=== PATIENT | male | born 1955 | race Caucasian/White ===

== ENCOUNTER → 2019-03-03 11:59 | Outpatient (CLI) | payer MEDICARE, OTHER, SELFPAY ==
--- NOTE | 2019-03-03 12:07 | DI.RAD.S_ITS ---
PROCEDURE: XR LUMBAR SPINE MIN 4V INDICATIONS: Status post lumbar fusion TECHNIQUE: 5 views of the lumbar spine were acquired. COMPARISON: [facility], CR, XR LUMBAR SPINE LAT FL EX 3VW, 05/08/2016, 17:27. FINDINGS: Bones: 5 nonrib-bearing vertebrae are present. There is normal bony alignment maintained by bilaterally symmetric transverse pedicle screw placement and vertical fixation rods spanning from L4-S1, without abnormal subluxation or evidence of device loosening or disruption.. No vertebral body compression fractures. No suspicious bony lesions. Soft tissues: Overlying bowel gas pattern is normal. No suspicious soft tissue calcifications. Oblique images: No pars defects. IMPRESSION: Stable appearance of the prior orthopedic fixation devices with reference to the comparison study 05/08/16. No evidence of device loosening or disruption. No subluxation has developed. Dictated by: Chemo Heard M.D. on 03/03/2019 at 13:20 Approved by: Chemo Heard M.D. on 03/03/2019 at 13:24
--- NOTE | 2019-03-03 12:07 | DI.RAD.S_ITS ---
PROCEDURE: XR CERVICAL SPINE 4V OR 5V INDICATIONS: Status post lumbar fusion TECHNIQUE: 5 views of the cervical spine acquired. COMPARISON: None. FINDINGS: Bones: No fractures or dislocations to the T1 level. Oblique images demonstrate no bony foraminal stenoses. Posterior and anterior degenerative changes present comprised of moderate C5-6 through C6-7-T1 degenerative disc disease anteriorly and mild to moderate facet osteoarthritis along these levels at the posterior elements. Soft tissues: No prevertebral soft tissue swelling. IMPRESSION: Degenerative disc disease and facet osteoarthritis is mild to moderate from C5 inferiorly, but no definite spinal or foraminal stenosis is found. Dictated by: Chemo Heard M.D. on 03/03/2019 at 13:25 Approved by: Chemo Heard M.D. on 03/03/2019 at 13:26
== END ==
PROVIDERS: Family Provider Physician Assistant Medical; PCP Physician Assistant Medical; Visit Provider Physical Medicine & Rehabilitation
DX: M47.816 Spondylosis without myelopathy or radiculopathy, lumbar region (principal); M47.812 Spondylosis without myelopathy or radiculopathy, cervical region; M50.322 Other cervical disc degeneration at C5-C6 level; G95.9 Disease of spinal cord, unspecified; Z98.1 Arthrodesis status; Z98.890 Other specified postprocedural states
CPT/HCPCS: 72050; 72110; 99214

== ENCOUNTER → 2019-03-12 14:59 | Outpatient (CLI) | payer MEDICARE, OTHER, SELFPAY ==
--- NOTE | 2019-03-12 15:01 | DI.MRI.S_ITS ---
PROCEDURE: MR LUMBAR SPINE WO CON INDICATIONS: Status post lumbar fusion TECHNIQUE: Noncontrast sagittal T1 spin echo and T2 fast echo, sagittal STIR, axial T1 and T2 fast spin echo through the lumbar spine. In cases with scoliosis, additional coronal T2 fast spin echo may be performed. COMPARISON: [facility], MR, L-SPINE W&WO CONTRAST, 05/23/2016, 13:53. FINDINGS: Image quality: Excellent. Alignment and Curvature: Unchanged alignment. Please see the small and positive image for further clarification of the spinal segmental level numbering scheme used in this report and prior to any intervention. This matches the prior study dated 05/23/16. Bone Marrow: Postsurgical changes related to L5-S1 laminectomy. Posterior spinal fixation hardware from the level of L5-S2 There is chronic osseous fusion of L5-S1 vertebral bodies. No acute vertebral body compression fractures. Spinal Cord: Conus medullaris terminates at the L1 level. Visualized cord demonstrates normal signal and size. Paraspinous Soft Tissues: No paravertebral masses. L1-L2: Normal appearance. L2-L3: Normal appearance. L3-L4: Dorsal epidural lipomatosis and mild central canal narrowing. Partial effacement of both lateral recesses with bilaterally symmetric appearance. Mild bilateral foraminal stenoses, grossly unchanged. L4-L5: No central canal stenosis. The lateral recess appear grossly patent. Mild bilateral foraminal stenoses, unchanged L5-S1: No residual high-grade central canal narrowing. The lateral recess appear grossly patent. Mild bilateral neural foraminal narrowing although suboptimal evaluation due to hardware artifact at this level SI-S2: No central canal narrowing. The lateral recess appear grossly patent. No definite foraminal stenoses IMPRESSION: Overall, unchanged postsurgical sequela, lumbar spondylosis and facet arthropathy as above. No high-grade central canal stenosis Diffuse mild bilateral foraminal stenoses appear unchanged since 05/23/16 Dictated by: Ty Vergara M.D. on 03/12/2019 at 17:24 Approved by: Ty Vergara M.D. on 03/12/2019 at 17:32
--- NOTE | 2019-03-12 15:01 | DI.MRI.S_ITS ---
PROCEDURE: MR CERVICAL SPINE WO CON INDICATIONS: Status post lumbar fusion TECHNIQUE: Noncontrast sagittal T1 spin echo and T2 fast spin echo, sagittal STIR, foraminal oblique sagittal T2 fast spin echo, and axial gradient echo or T2 fast spin echo through the cervical spine. COMPARISON: [facility], RG, MRI C-SPINE W/O CONTRAST, 05/26/2008, 8:49. [facility], MR, MR LUMBAR SPINE WO CON, 03/12/2019, 15:28. [facility], CR, XR CERVICAL SPINE 4V OR 5V, 03/03/2019, 12:19. FINDINGS: Image quality: Excellent. Alignment and Curvature: There is normal bony alignment. Bone Marrow: Marrow demonstrates normal overall signal. Spinal Cord: Visualized spinal cord has normal size and signal. No cerebellar tonsillar herniation. Paraspinous Soft Tissues: No paravertebral masses. Prevertebral soft tissues are normal in thickness. C2-C3: No significant abnormality is seen. C3-C4: The disc height is well-preserved. Loss of disc signal is seen at this level. A mild degree of generalized disc osteophyte complex is seen. There is moderate right-sided and mild to moderate left-sided neural foraminal narrowing seen. Mild central canal narrowing is seen. C4-C5: The disc height is well-preserved. Loss of disc signal is seen at this level. Moderate generalized disc osteophyte complex is seen. There is a mild central disc protrusion seen. Moderate bilateral neural foraminal narrowing is seen. Moderate central canal narrowing is seen, with associated mass effect upon the ventral spinal cord. C5-C6: There is at least moderate loss of disc height and disc signal seen. Moderate to prominent disc osteophyte complex is seen, with a central disc osteophyte protrusion seen. There is moderate to severe bilateral neural from narrowing seen. There is moderate to severe central canal narrowing, with associated mass effect upon the ventral spinal cord. C6-C7: Moderate loss of disc height is seen. Loss of disc signal is seen. Moderate generalized disc osteophyte complex is seen. Moderate to severe bilateral neural foraminal narrowing is seen. There is at least moderate central canal narrowing, with minimal associated mass effect upon the ventral spinal cord. C7-T1: No significant abnormality is seen. IMPRESSION: Multiple levels of cervical spine degenerative change are seen, which are most prominent at C5-C6. These degenerative changes have progressed compared to the outside 2009 examination. Dictated by: Sree Salinas M.D. on 03/12/2019 at 17:26 Approved by: Sree Salinas M.D. on 03/12/2019 at 17:30
== END ==
PROVIDERS: Family Provider Physician Assistant Medical; PCP Physician Assistant Medical; Visit Provider Physical Medicine & Rehabilitation
DX: M47.816 Spondylosis without myelopathy or radiculopathy, lumbar region (principal); M48.061 Spinal stenosis, lumbar region without neurogenic claudication; M47.812 Spondylosis without myelopathy or radiculopathy, cervical region; G95.9 Disease of spinal cord, unspecified; Z98.1 Arthrodesis status; Z98.890 Other specified postprocedural states
CPT/HCPCS: 72141; 72148

== ENCOUNTER 2019-04-29 11:03 | Outpatient (CLI) | payer MEDICARE, OTHER, SELFPAY ==
[2019-04-29] VITALS (8 sets, daily range): BP systolic 108–134; BP diastolic 80–93; PULSE 64–71; RESP 16; TEMP 36.3; O2SAT 96–100
--- NOTE | 2019-04-29 11:05 | DI.RAD.S_ITS ---
PROCEDURE: PAIN L/S TRANSFORAMINAL INJECT INDICATIONS: RADICULOPATHY FINDINGS: Fluoroscopic spot filming was performed to verify placement of spinal needles at the L5-S1 level(s), as labeled on the films. Appropriate location(s) of the needle tip(s) was confirmed by injection of iodinated contrast. Dictated by: Ty Vergara M.D. on 04/29/2019 at 13:59 Approved by: Ty Vergara M.D. on 04/29/2019 at 14:00
[2019-04-29] MEDS: fentaNYL 100 MCG/2 ML INJ 50 MCG IV (12:15)
[2019-04-29] MEDS: MIDAZOLAM 5 MG/5 ML VIAL IV (12:21)
[2019-04-29] MEDS: BETAMETHASONE 30 MG/5 ML MDV 6 MG INJ (12:24)
[2019-04-29] MEDS: IOPAMIDOL 15 ML VIAL 3 ML INJ (12:24)
[2019-04-29] MEDS: BUPIVACAINE 0.25% (PF) VIAL 2 ML INJ (12:24)
[2019-04-29] MEDS: DEXAMETHASONE 10 MG/ML VIAL 20 MG INJ (12:25)
--- NOTE | 2019-04-29 12:26 | PC.NURSE ---
ASSISTING PT OFF TABLE AND TRANSPORTING TO POST PROC AREA IN STABLE CONDITION. PASSING RN CARE OF PT OFF TO SHANTA Marx RN.
--- NOTE | 2019-04-29 12:29 | PM.PROC.1 ---
Procedures Date/Time Date of procedure: 04/29/19 Time of procedure: 12:30 General Procedure description: PREOP DIAGNOSIS 1. FORMAINAL STENOSIS WITH LE SYMPTOMS POST OP DIAGNOSIS 1. FORMAINAL STENOSIS WITH LE SYMPTOMS PROCEDURES 1. FLUOROSCOPICALLY GUIDED CONTRAST CONTROLLED TRANSFORAMINAL EPIDURAL STEROID INJECTION - Left L5/S1 PHYSICIAN: Josh Vail DO INDICATIONS: Jerry is referred by JUDITH Eason for treatment of Foraminal Stenosis with Left LE Symptoms FINDINGS Foraminal Nerve Root Compression secondary to disc disease and facet hypertrophy DESCRIPTION OF PROCEDURE: Following review of allergy and review of potential side effects and complications, including, but not necessarily limited to, infection, allergic reaction, local tissue breakdown, stroke, temporary or permanent nerve injury, paralysis, and possible , the patient indicated that the patient understood and agreed to proceed. An informed consent document was signed by the patient, witnessed by a nurse, and placed in the patient's chart. Additionally, other treatment options including medications, modalities, and physical therapy were reviewed with the patient. After review of previous anaesthesic history and IV conscious sedation the patient was deemed safe to proceed with todays procedure with IV conscious sedation as ASA class II designation. Safety time-out was performed to confirm patient ID, procedure to be performed and site of procedure. IV sedation was accomplished with a combination of 2mg of Versed and 50mcg of Fentanyl was administered by the RN after DO order, titrated to patient comfort during the course of the procedure while the patient remained responsive to all verbal commands In the prone position following sterile prep and drape of the lumbar region, the left L5/S1 posterior neuroforamen was identified fluoroscopically. The skin was anesthetized via a 25-gauge 1.5-inch needle with 1% lidocaine solution. At this point, a 25-gauge 3.5-inch spinal needle was atraumatically introduced and advanced under fluoroscopic guidance through the posterior Left L5/S1 neuroforamen to approximately the anterior aspect of the canal. Depth was confirmed on lateral view. Following negative aspiration, injection of approximately 1.5 cc of Isovue 200 under live fluoroscopy in the AP view confirmed excellent flow along the nerve root, into the epidural space without vascular or intrathecal uptake observed Radiological data, including multiple fluoroscopic views of the lumbosacral spine, reveal a spinal needle at the left L5/S1 posterior neuroforamen. Subsequent views show flow of contrast material flowing superiorly and inferiorly along the nerve root confirming epidural flow. Subsequently, a test dose of 1.5cc of 0.25% marcaine solution was administered and patient was observed for two minutes for signs or symptoms of complications, including abdominal pain, shortness of breath, bilateral upper or lower extremity weakness, nausea and vomiting, prior to steroid injection. At this point, a total of 3cc or 20mg of dexamethasone and 6mg of betamethasone was injected without incident. The procedure tolerated the procedure well without signs or symptoms of complications prior to transfer to the recovery area continued monitoring without incident. The patient was then transferred to the recovery area where they were observed for an appropriate time after the injection. The patient reported a VAS score of 8 prior to the procedure and a post-procedure VAS of 0. Total Fluoroscopy Time: 11 seconds Total Conscious Sedation Time: 24min POST OP INSTRUCTIONS The patient was provided a Pain Log to continue to record their response to the target-specific procedure prior to follow-up visit with their referring physician. Additionally, specific post-injection care instructions and a contact number to our office were provided if concerns arise regarding possible complications associated with the procedure are suspected. Josh Vail DO Complications: none
--- NOTE | 2019-04-29 14:06 | PC.NURSE ---
pt returned to pre procedure via w/c. Care, monitoring, and discharge was done by Sosa Osorio under this authors sign.
== END 2019-04-29 13:05 | disposition home or self-care (01) ==
LOC: RAD 11:05
PROVIDERS: Family Provider Physician Assistant Medical; PCP Physician Assistant Medical; Referring Provider Physical Medicine & Rehabilitation; Visit Provider Physical Medicine & Rehabilitation
DX: M48.07 Spinal stenosis, lumbosacral region (principal); M51.17 Intervertebral disc disorders with radiculopathy, lumbosacral region
CPT/HCPCS: 64483; 99152; J0702; J1100; J2250; J3010

== ENCOUNTER → 2019-08-07 09:23 | Outpatient (CLI) | payer MEDICARE, OTHER, SELFPAY ==
[2019-08-08 21:57] LABS: COVID19 Sendout Not Detected (Not Detect)
== END ==
PROVIDERS: Family Provider Physician Assistant Medical; PCP Physician Assistant Medical; Visit Provider Family Medicine
DX: Z01.818 Encounter for other preprocedural examination (principal)
CPT/HCPCS: 87635

== ENCOUNTER 2019-08-10 09:08 | Inpatient (IN) | payer MEDICARE, OTHER, SELFPAY ==
[2019-06-08 12:35] VITALS: BMI 30.7
[2019-08-10] VITALS (15 sets, daily range): BP systolic 104–160; BP diastolic 74–95; PULSE 69–89; RESP 8–18; TEMP 36–36.6; O2SAT 90–99; BMI 29.5
--- NOTE | 2019-08-10 | DI.RAD.S_ITS ---
PROCEDURE: XR CERVICAL SPINE 2V OR 3V INDICATIONS: C4-7 ANTERIOR DISCECTOMY TECHNIQUE: 2 view(s) of the cervical spine were acquired. COMPARISON: None. FINDINGS: Bones: No fractures or dislocations to the C7 level. Postsurgical changes compatible C4-C5, C5-C6 and C6-C7 ACDF. There is normal alignment and curvature are fused and nonfused segments. Soft tissues: No prevertebral soft tissue air. IMPRESSION: Expected postsurgical change for C4-C7 ACDF. Dictated by: Marion June MD, PhD on 08/10/2019 at 13:20 Approved by: Marion June MD, PhD on 08/10/2019 at 13:26
--- NOTE | 2019-08-10 07:25 | PM.HP.1 ---
History of Present Illness History of Present Illness Date Patient Seen: 08/10/19 Time Patient Seen: 10:06 Chief complaint: Cervical Fusion Anterior *OPB* Narrative: 63-year-old male with progressive neck symptoms. He had an injury with a fracture in 1976. Fluid years his symptoms have been progressively worsening. Symptoms include stiffness and soreness in the neck with repetitive motion. He gets pain in the upper back that is stabbing and move happens when he walks. However, over the past year he has been having increased problems with feeling like his legs will not support him and he has balance issues. This has been progressing over the past several months. He was having some shortness of breath and dizziness but had a negative cardiac workup. He also has some left-sided facial numbness and hoarseness. No arm pain or weakness but he does have numbness that started in both index fingers and now has progressed to both hands. Also losing fine motor control, his handwriting is getting very sloppy. No bowel or bladder changes. He does have a history of lumbar surgery but not cervical. Patient History Medical History (Updated 08/10/19 @ 09:59 by Alka Mane RN) Arthritis (Acute) Cervical myelopathy (Acute) Facet arthropathy, lumbar (Acute) Gastric reflux (Acute) H/O electromyography (Acute) Hearing loss (Acute) Hypertension (Acute) Numbness (Acute) Poor balance (Acute) Surgical History History of back surgery (Acute) History of ear surgery (Acute) Hx of hernia repair (Acute) Hx of repair of right rotator cuff (Acute) Family & Social History Family History Father Brain bleed Colon cancer Esophagus cancer Mother Kidney stones Breast cancer Colon cancer Cardiovascular disease Brother Multiple organ system failure Alcohol abuse Grandmother No problems noted. Social History: household members spouse Prior Living Arrangements House Safety & Behavioral: Feels Safe in Current Yes Environment Been Physically Hurt or No Threatened By a Person Suicidal Ideation Description None Suicide Plan Description No Plan Tobacco & Substance use: Smoking Status Never smoker alcohol intake current alcohol intake frequency 0-2 drinks per day Substance Use Type does not use Meds Home Medications and Allergies Home Medications Medication Instructions Recorded Confirmed Type losartan 100 0.5 tab PO DAILY tab 03/03/19 06/08/19 History mg-hydrochlorothiazide 25 mg tablet metoprolol tartrate 25 mg tablet See Rx Instructions PO DAILY 03/03/19 06/08/19 History tamsulosin 0.4 mg capsule 0.4 mg PO DAILY 03/03/19 06/08/19 History gabapentin 100 mg capsule 100 mg PO BEDTIME #60 cap MDD 300 05/19/19 06/08/19 Rx mg p.o. q.h.s. sildenafil 100 mg PO DAILY PRN 06/08/19 06/08/19 History naproxen 250 mg PO BID PRN 08/10/19 08/10/19 History Allergies Allergy/AdvReac Type Severity Reaction Status Date / Time No Known Drug Allergies Allergy Verified 08/10/19 09:40 Review of Systems Constitutional Constitutional: Denies chills and Denies fever(s) Respiratory Respiratory: Denies cough Exam Const Orientation: alert and oriented x3 Resp Auscultation: clear to auscultation bilaterally Cardio Rate: regular rate Rhythm: regular rhythm Back/Spine/Pelvis Other: 5/5 motor both upper extremities except for 4/5 right wrist extensor and assistant manager pt bilaterally. Intact sensation throughout both upper extremities but decreased both hands. Miki present on the left. Minimal cervical tenderness. Objective Imaging Cervical MRI: My impression: From 03/12/2019 shows congenital narrowing of the spinal canal. C2-3 open. C3-4 mild central mild bilateral foraminal narrowing. C4-5 moderate central stenosis with flattening of the cord, moderate bilateral foraminal narrowing. C5-6 severe central stenosis with flattening of the cord and cord signal changes. Severe bilateral foraminal narrowing. C6-7 mild central stenosis moderate bilateral foraminal narrowing. C7-T1 open. Lumbar MRI from 03/12/2019 shows an instrumented fusion from L4 through S1. Open central canal and foramen throughout. Assessment & Plan Assessment & Plan narrative: Cervical stenosis with progressive myelopathy. His lumbar MRI looks fine and does not explain the leg symptoms, this most likely is from the cervical spine. We had initially scheduled him for surgery but delayed due to the coronavirus limitations. However, as the restrictions are of lessening, I feel that he is at a high risk for further neurologic deterioration if we do not go ahead with surgery at this point the benefits of surgery outweigh the risks. We will go ahead with a C 4-7 ACDF. All questions been answered. Risks and benefits again discussed.
[2019-08-10] MEDS: LACTATED RINGERS 1,000 ML 42 ML IV (09:50)
[2019-08-10] MEDS: CEFAZOLIN 2 GM/100 ML FROZ.PIGGY IV ×2 (10:44→19:35)
[2019-08-10] MEDS: SODIUM CHLORIDE 0.9% 1,000 ML, GENTAMICIN 80 MG IRR (11:30)
[2019-08-10] MEDS: BUPIVACAINE 0.25% W/ EPI 30 ML VIAL INJ (11:30)
[2019-08-10] MEDS: THROMBIN (RECOMBINANT) 5,000 UNIT VIAL 5000 UNIT TOP (11:31)
--- NOTE | 2019-08-10 13:01 | P.OP_ITS ---
Operative Date/Time/Diagnoses Date of procedure: 08/10/19 Time of procedure: 13:01 Pre-op diagnosis: Cervical stenosis with myelopathy Post-op diagnosis: same Procedure & Clinicians Procedure: C4-5, C5-6, C6-7 anterior cervical diskectomy and fusion with cage at each level Iliac crest bone graft aspirate Use of microscope Same procedure as scheduled: Yes Indications: [age] year old male with intractable pain from cervical stenosis and progressive myelopathy. They had failed conservative management and requested operative intervention. Risks and benefits of surgery were discussed and appropriate consents were obtained. Surgeon: Chandrakant Snell Graphics Artist: Erika Coleamn Anesthesia Type: General Operative Notes Findings: None Closure Type: primary Specimen(s): none sent Prosthetic devices, grafts, tissues, transplants, or devices: Marcelino AB-C Estimated Blood Loss (mL): 5 Procedure in detail: Patient was brought to the operating room and intubated on the table. A time-out was performed. Preoperative antibiotics were given. The neck was prepped and draped in the standard sterile fashion. Using a skin fold, we made a 3 cm oblique incision on the left side. We used Bovie to go through the platysma and then did a standard anterolateral blunt dissection down to the precervical fascia. Fascia was nicked and elevated up. A marker was placed and x-ray was taken for localization. We then subperiosteally elevated up the longus colli muscles. Self-retaining retractors were placed. Riverdale pins were placed. We then brought in the microscope. A scalpel used to perform an annulotomy. We then used a combination of pituitaries and curettes and Kerrison to perform a complete anterior diskectomy at C5-6 as this was the tightest level. We used the bur to take down the posterior osteophytes. We took down the PLL and used Kerrison to remove any posterior disc material and osteophytes. At the end we could from the nerve hook cephalad caudally and out the foramen and everything was opened. A small stab incision was made over the left anterior iliac crest. A Jamshidi needle was advanced into the pelvis and 2 mL of bone marrow was aspirated. We then used the trials. We then packed a 15 x 15 x 6 mm mm AB-C cage with Primagen bone graft and the iliac crest harvest. The cage was placed under fluoroscopic guidance. We then placed our two locking plates. X-ray was taken to confirm positioning. We then went down to C6-7. Again we distracted open with Riverdale pins. We performed a complete diskectomy including endplate preparation with curettes and pituitaries and Kerrisons then took down the PLL. A nerve hook was run throughout to make sure with an was wide open. We distracted and trialed our our cage. Another 15 x 15 x 6 mm cage was packed with bone graft and impacted into the disc space. We placed our locking plates and confirmed positioning with x-ray. We then moved up to C4-5. Again complete diskectomy was performed including endplate preparation. We took down the PLL. We decompressed and then checked everything with a nerve hook. We trialed and placed another 15 x 15 x 6 mm cage packed with bone graft. We placed our locking plates confirm positioning with final x-rays. The wound was irrigated. There was a little bony bleeding. This was treated with FloSeal. There did not appear to be any bleeding afterwards but to be safe I placed a drain.. The carotid was beating nicely. The platysma was closed. The superficial was closed. The skin was closed. A sterile dressing was placed. They were then extubated and brought to recovery room with no complications. Complications: none Post-operative Condition: stable Disposition: PACU Plan for aftercare: Overnight admission. Probable discharge tomorrow.
--- NOTE | 2019-08-10 13:56 | SUR.PHASEI ---
Report called to Gal.
[2019-08-10] MEDS: HYDROMORPHONE 2 MG INJ IV (13:59)
--- NOTE | 2019-08-10 14:32 | SUR.OPER ---
Supine, head on gel donut. Arms padded with gel pads, tucked at sides, towel roll under shoulders. Safety belt at thigh. Legs uncrossed.
--- NOTE | 2019-08-10 14:35 | SUR.PHASEI ---
Patient transferred to the floor. Report given to Gal. Black backpack, belongings bag, glasses and cell phone with patient. Dressings checked with RN. VS stable.
[2019-08-10] MEDS: LACTATED RINGERS 1,000 ML 125 ML IV (15:07)
--- NOTE | 2019-08-10 17:36 | SLP.IPNOTE ---
Patient seen for swallow screen post ACDF surgery. Patient placed on general diet and thin liquids after surgery. Patient presented with no overt s/sx of aspiration during observation at dinner time. NOVELTY TWISTER TENDER reviewed common swallowing and voice changes related to ACDF surgery. NOVELTY TWISTER TENDER also provided patient with ACDF handout with further explanation of changes in voice and swallowing after ACDF surgery. NOVELTY TWISTER TENDER placed handout in patient's discharge folder. NOVELTY TWISTER TENDER informed patient to call outpatient therapy services if swallowing and/or voice changes persist for several weeks after surgery.
[2019-08-10] MEDS: DOCUSATE 100 MG CAPSULE PO (21:08)
[2019-08-10] MEDS: SENNOSIDES 8.6 MG TABLET 17.2 MG PO (21:08)
[2019-08-10] MEDS: METOPROLOL IR 25 MG TABLET 12.5 MG PO (21:09)
[2019-08-10] MEDS: GABAPENTIN 100 MG CAPSULE PO (21:10)
[2019-08-10] MEDS: hydrOXYzine pamoate 25 MG CAPSULE PO (21:12)
[2019-08-10] MEDS: HYDROCODONE/ACET 5/325 TABLET 2 TAB PO (21:13)
[2019-08-11 00:15] VITALS: BP 157/98; PULSE 79; RESP 16; TEMP 36.6; O2SAT 97
[2019-08-11] MEDS: HYDROCODONE/ACET 5/325 TABLET 2 TAB PO ×3 (01:16→10:22)
[2019-08-11] MEDS: LACTATED RINGERS 1,000 ML 125 ML IV (01:19)
[2019-08-11] MEDS: CEFAZOLIN 2 GM/100 ML FROZ.PIGGY IV (03:07)
[2019-08-11 05:48] VITALS: BP 140/96; PULSE 69; RESP 16; TEMP 36.2; O2SAT 96
--- NOTE | 2019-08-11 07:42 | PM.PNPO.1 ---
Subjective Subjective Date Patient Seen: 08/11/19 Time Patient Seen: 07:42 Interval history: He is doing very well. Little difficulty with swallowing. He has been up and out of bed. Exam Vital Signs (past 8 hours): - 08/11/19 00:15 08/11/19 05:48 Temperature 97.8 F 97.2 F L Pulse Rate 79 69 Respiratory Rate 16 16 Blood Pressure 157/98 H 140/96 H Pulse Oximetry 97 96 Oxygen Delivery Method Room Air Oxygen Flow Rate 0 Const Orientation: alert and oriented x3 Back/Spine/Pelvis Other: CDI. 5/5 motor both upper extremities. Assessment & Plan Post-op Postoperative Procedures: Procedures Operation Date: 06/22/19 13:30 <No data on this case meets the specified criteria> Operation Date: 08/10/19 11:15 Actual Procedures Side Surgeon p C4-7 anterior discectomy and instrumented fusion w/bone graft Chandrakant Snell MD he is doing very well. Mobilize this morning with therapy and then discharged home today.
[2019-08-11 07:50] VITALS: BP 150/97; PULSE 73; RESP 16; TEMP 37; O2SAT 97
[2019-08-11] MEDS: DOCUSATE 100 MG CAPSULE PO (08:05)
[2019-08-11] MEDS: METOPROLOL IR 25 MG TABLET PO (08:07)
[2019-08-11] MEDS: hydroCHLOROthiazide 12.5 MG CAPSULE PO (08:09)
[2019-08-11] MEDS: LOSARTAN 50 MG TABLET PO (08:09)
--- NOTE | 2019-08-11 08:17 | PC.NURSE ---
Addendum entered by Charlette Jones R.N. 08/11/19 10:47: Drain removed and medicated for pain prior to d/c. Teaching provided. Pt ambulated to front entrance without incident. Original Note: Am Charisma is A/ox4, has already seen Dr and plans to d/c after PT today. Pain controlled. No trouble with swallowing. Call light in reach.
--- NOTE | 2019-08-11 09:04 | OT.IP.EVAL ---
Current Diagnoses Unspecified cord compression (08/10/19) Surgery Performed Operation Date: 06/22/19 13:30 <No data on this case meets the specified criteria> Operation Date: 08/10/19 11:15 Actual Procedures p C4-7 anterior discectomy and instrumented fusion w/bone graft - Chandrakant Snell MD Past Medical History (Last Updated 08/10/19 @ 09:59 by Alka Mane RN) Arthritis (Acute) Cervical myelopathy (Acute) Facet arthropathy, lumbar (Acute) Gastric reflux (Acute) H/O electromyography (Acute) Hearing loss (Acute) Hypertension (Acute) Numbness (Acute) Poor balance (Acute) Surgical History (Last Reviewed 08/10/19 @ 07:28 by Chandrakant Snell MD) History of back surgery (Acute) History of ear surgery (Acute) Hx of hernia repair (Acute) Hx of repair of right rotator cuff (Acute) Occupational Therapy Inpatient Evaluation/Re-Eval M1 PT/OT-IP Prior Functional Status Start: 08/11/19 09:46 Freq: NEEDED Status: Active Protocol: Document 08/11/19 08:39 [facility] (Rec: 08/11/19 10:13 [facility] [id number]) Medical Review Prior Functional Status Medical History Reviewed Yes Diet/Fluid Consistency Regular,Thin Liquids Communication Independent Mobility and Gait Independent with no devices. Activities of Daily Living and IADL's Indepedent and needing increased time due to pain and limited AROM for RUE. Social History Household Members spouse Living Arrangements House Number of Floors (Floors) One Floor Number of Stairs To Enter/Railing? 3 steps with pillars on each side. Home Environment High Toilet,Walk in Shower Home Equipment Straight Cane,Cnc Machine Programmer,Grab Bars Near Toilet M2 OT-IP Current Condition Start: 08/11/19 09:46 Freq: Status: Active Protocol: Document 08/11/19 08:39 [facility] (Rec: 08/11/19 10:13 [facility] [id number]) Occupational Therapy Current Condition Current Condition Evaluation Date 08/11/19 Treatment Diagnosis Cervical stenosis with myelopathy s/p C4-5, C5-6, C6- 7 ant. cerv. diskect. Diagnosis Onset Date 08/10/19 Post Operative Precautions Cervical Spine Precautions Soft Collar for Comfort,No Heavy Lifting,Log Roll Lumbar Precautions Log Roll,No Twisting Other Precautions Pt also has back issues and therefore encourage pt to keep following log rolling and no twisting as he has been doing prior to sx. M3 OT- IP Subjective and Pain Start: 08/11/19 09:46 Freq: Status: Active Protocol: Document 08/11/19 08:39 [facility] (Rec: 08/11/19 10:13 [facility] [id number]) OT- Subjective Occupational Therapy Visit Type Type Initial Evaluation Visit Start Time 08:39 Visit Stop Time 09:04 Total Visit Minutes 25 Occupational Therapy Visit Comments Patient Comments Pt agreeable to get up for OT eval. Patient/Caregiver Goals TO go home, be able to play and pickle pumper the grand kids again. OT Pain Assessment Pain When Pain Assessed At Rest Pain Present Pain Present Denied Pain M4 OT- IP ADL's Start: 08/11/19 09:46 Freq: Status: Active Protocol: Document 08/11/19 08:39 [facility] (Rec: 08/11/19 10:13 [facility] [id number]) OT LAE-Stfm-Lynxrgq General Evaluation Self-Feeding Ability Independent Comments OT Self-Feeding Comments Went over swallowing information with pt after sx. Pt stated PLANT PROTECTION GUARD saw him yesterday. OT ADL-Grooming General Evaluation Grooming Ability Standby Assistance Areas Needing Assistance Retrieving/Set-up of Grooming Items Comments OT Grooming Comments VC to spit into a cup or lean at his hips. OT ADL-Oral Care General Eval Oral Care Ability Independent OT ADL-Dressing General Eval Upper Body Dressing Ability Standby Assistance Lower Body Dressing Ability Standby Assistance Areas Needing Assistance Retrieving/Set-up of Clothing Assistive Devices Dressing Assistive Devices Long Handled Shoe Horn,Cnc Machine Programmer ,Sock Aid Comments OT Dressing Comments Pt needing initial training with LB dressing equipment of pay station attendant and sock aid to increase ease and independence for dressing needs. Pt also able to felipe/doff cervical collar while standing in front of the mirror. OT ADL-Toileting Comments OT Toileting Comments Pt not having to go. Pt states able to lean to wipe or suggested pt to stand for increased ease, educated of toilet aid if needed in the future. OT ADL-Bathing Comments OT Bathing Comments Pt wanting to shower at home. Suggested for his to be present and shower from below dressing down. M5 OT- IP IADL's Start: 08/11/19 09:46 Freq: Status: Active Protocol: Document 08/11/19 08:39 [facility] (Rec: 08/11/19 10:13 [facility] [id number]) OT-Instrumental Activities of Daily Living Home Safety Awareness Awareness of Need for Assistance at Home Good Awareness Ability to Problem Solve Emergency Able to Problem Solve Situations Home Safety Comments At this time pt's to assist for IADl and driving needs. Medication Management Medication Management No Deficits Identified Money Management Money Management No Deficits Identified Meal Preparation Meal Preparation Caregiver Provides Assist Grainer Machine Grainer Machine Caregiver Provides Assist Driving Driving Caregiver Provides Assist M6 OT- IP Functional Cognition Start: 08/11/19 09:46 Freq: Status: Active Protocol: Document 08/11/19 08:39 [facility] (Rec: 08/11/19 10:13 [facility] [id number]) Cognitive Factors Limiting Selfcare Function Cognitive Ability Level of Alertness Alert Patient Orientation Name,Age,Birthday,Month,Date, Year,Day of Week,Place, Situation Attention Span Ability Capable of Focused Attention, Capable of Sustained Attention Ability to Follow Commands Able to Follow Multi-Step Commands Memory Description No Deficits Noted Safety Awareness No Deficits Noted Problem Solving Ability No deficits Noted Executive Function Ability No Deficits Noted Cognitive Comments Cognitive Assessment Comments Pt feels a bit groggy from the medications otherwise appears intact for all cognitive needs. OT- Vision and Hearing OT- Hearing Assessment OT- Hearing Assessment WFL OT- Vision Assessment Visual Acuity Glasses All The Time M7 OT- IP Mobility and Balance Start: 08/11/19 09:46 Freq: Status: Active Protocol: Document 08/11/19 08:39 [facility] (Rec: 08/11/19 10:13 [facility] [id number]) OT- Bed Mobility Assessment Rolling Level of Assistance Independent Supine to Sit Supine to Sit Assist Independent Sit to Supine Sit to Supine Assist Independent OT-Transfer Assessment Sit to and From Stand Sit to and from Stand Independent Transfers Transfer Ability Independent Devices Transfer Assistive Devices None Comments Mobility Comments Pt able to more independently in the room and for all bed mobility needs with good safety. OT- Balance Assessment Sitting Balance and Reactions Static Sitting Balance Ability Normal Dynamic Sitting Balance Ability Normal Standing Balance and Reactions Static Standing Balance Ability Normal Dynamic Standing Balance Ability Good M8 OT- IP Objective Assessments Start: 08/11/19 09:46 Freq: Status: Active Protocol: Document 08/11/19 08:39 [facility] (Rec: 08/11/19 10:13 [facility] [id number]) OT Gross Range of Motion Upper Extremity Range of Motion Assessment Right Impaired M9 OT- IP Assessment and Plan Start: 08/11/19 09:46 Freq: Status: Active Protocol: Document 08/11/19 08:39 [facility] (Rec: 08/11/19 10:13 [facility] [id number]) OT Summary Assessment and Plan Potential Rehabilitation Potential Excellent Analytic Complexity at Evaluation Low Summary Progress Towards Goals Safe For Discharge Assessment Summary Pt low complexity and doing well and looking to go home with to assist today. Pt has good understanding for all cervical precautions and equipment needs. Goals Patient/Caregiver Education Goal Demonstrate Post-Op Precautions Days to Meet Goals 1 Frequency of Treatment Frequency Of Treatment Once a Day Treatment Plan OT Treatment Plan Patient/Family Education, Discharge Planning Discharge Recommendations OT Discharge Recommendations Home with Assistance Transportation Needs at Discharge Private Vehicle
--- NOTE | 2019-08-11 09:47 | PT.IIE ---
Current Diagnoses Unspecified cord compression (08/10/19) Surgery Performed Operation Date: 06/22/19 13:30 <No data on this case meets the specified criteria> Operation Date: 08/10/19 11:15 Actual Procedures p C4-7 anterior discectomy and instrumented fusion w/bone graft - Chandrakant Snell MD Surgical History (Last Reviewed 08/10/19 @ 07:28 by Chandrakant Snell MD) History of back surgery (Acute) History of ear surgery (Acute) Hx of hernia repair (Acute) Hx of repair of right rotator cuff (Acute) Medical History (Last Updated 08/10/19 @ 09:59 by Alka Mane RN) Arthritis (Acute) Cervical myelopathy (Acute) Facet arthropathy, lumbar (Acute) Gastric reflux (Acute) H/O electromyography (Acute) Hearing loss (Acute) Hypertension (Acute) Numbness (Acute) Poor balance (Acute) Physical Therapy Inpatient Evaluation/Re-Eval M1 PT/OT-IP Prior Functional Status Start: 08/11/19 09:46 Freq: NEEDED Status: Discharge Protocol: Document 08/11/19 08:39 [facility] (Rec: 08/11/19 10:13 [facility] [id number]) Medical Review Prior Functional Status Medical History Reviewed Yes Diet/Fluid Consistency Regular,Thin Liquids Communication Independent Mobility and Gait Independent with no devices. Activities of Daily Living and IADL's Indepedent and needing increased time due to pain and limited AROM for RUE. Social History Household Members spouse Living Arrangements House Number of Floors (Floors) One Floor Number of Stairs To Enter/Railing? 3 steps with pillaars on each side. Home Environment High Toilet,Walk in Shower Home Equipment Straight Cane,Building Construction Superintendent,Grab Bars Near Toilet M1 PT/OT-IP Prior Functional Status Start: 08/11/19 14:20 Freq: NEEDED Status: Active Protocol: Document 08/11/19 09:47 [facility] (Rec: 08/11/19 14:57 AB [id number]) Medical Review Prior Functional Status Medical History Reviewed Yes Diet/Fluid Consistency Regular,Thin Liquids Communication able to make needs known Mobility and Gait pt stated that he is independent with all mobilities and ambulation without AD Social History Household Members spouse Living Arrangements House Number of Floors (Floors) One Floor Number of Stairs To Enter/Railing? 2 steps to enter without rails but has 2 posts that he can hold on to Home Environment High Toilet,Walk in Shower Home Equipment Hand Held Shower,Building Construction Superintendent,Grab Bars Near Toilet M2 PT-IP Current Condition Start: 08/11/19 14:20 Freq: NEEDED Status: Active Protocol: Document 08/11/19 09:47 [facility] (Rec: 08/11/19 14:57 [facility] [id number]) Physical Therapy Current Condition Current Condition Evaluation Date 08/11/19 Treatment Diagnosis s/p C4-7 ACDF/fusion; difficulty in walking Onset Date 08/10/19 Precautions Cervical Spine Precautions Soft Collar for Comfort,No Heavy Lifting,Log Roll M3 PT-IP Subjective Start: 08/11/19 14:20 Freq: NEEDED Status: Active Protocol: Document 08/11/19 09:47 [facility] (Rec: 08/11/19 14:57 AB [id number]) Subjective Physical Therapy Visit Type Type Initial Evaluation Visit Start Time 09:47 Visit Stop Time 10:06 Total Visit Minutes 19 Number of OPEN HEARTH LABORER Visits 0 Physical Therapy Visit Comments Patient Comments pt agreeable to do PT Therapy Pain Assessment Pain When Pain Assessed At Rest Pain Present Pain Present Pain Reported M4 PT-IP Mobility and Gait Start: 08/11/19 14:20 Freq: NEEDED Status: Active Protocol: Document 08/11/19 09:47 [facility] (Rec: 08/11/19 14:57 AB [id number]) PT-Bed Mobility Assessment Rolling Type of Rolling Log Rolling Level of Assist Standby Assistance Supine to Sit Supine to Sit Standby Assistance Sit to Supine Sit to Supine Standby Assistance PT-Transfer Assessment Sit to and From Stand Sit to and from Stand Standby Assistance,Use of Upper Extremities Equipment Transfer Assistive Device Gait Belt Orthotic/Prosthetic Devices or Brace: Yes Transfers Transfer Destination Bed,Chair Transfer Technique ambulated without AD Transfer Ability Level of Assist Standby Assistance Gait Assessment Gait Gait Assistance Required: Standby Assistance Distance (Feet) 300 Able to Maintain Weight Bearing Status No During Gait Assistive Devices Assistive Device None,Gait Belt Orthotic/Prosthetic Devices or Brace: No Stair Climbing Assessment Evaluation Level of Assist On Stairs Standby Assistance Devices Stair Climbing Assistive Devices None Technique/Endurance Stair Climbing Direction Ascend and Descend Stair Climbing Technique Step Over Step Number of Steps Climbed 3 Query Text: Stair Climbing Set # Repetitions (reps) 1 Comments Stair Climbing Comments educated on safety and pt to descend doing step to step pattern PT-Balance Assessment Sitting Balance and Reactions Static Sitting Balance Ability Normal Dynamic Sitting Balance Ability Good Standing Balance and Reactions Static Standing Balance Ability Good Dynamic Standing Balance Ability Good Device Used without AD M5 PT-IP Objective Assessments Start: 08/11/19 14:20 Freq: NEEDED Status: Active Protocol: Document 08/11/19 09:47 [facility] (Rec: 08/11/19 14:57 AB [id number]) Orientation Orientation/Cognition Level of Alertness Alert Orientation Name,Place,Situation Language Function Ability No Deficits Noted Safety Awareness Understands Safety Issues Memory Description No Deficits Noted Gross Range of Motion Lower Extremity ROM Assessment Within Functional Limits Strength Lower Extremity Strength Assessment Within Functional Limits Muscle Tone Muscle Tone WNL Yes M6 PT-IP Treatment Start: 08/11/19 14:20 Freq: NEEDED Status: Active Protocol: Document 08/11/19 09:47 [facility] (Rec: 08/11/19 14:57 AB [id number]) Physical Therapy Treatment Education Education Provided Precautions,Safety M7 PT-IP Assessment and Plan Start: 08/11/19 14:20 Freq: NEEDED Status: Active Protocol: Document 08/11/19 09:47 [facility] (Rec: 08/11/19 14:57 AB [id number]) PT Summary Assessment and Plan Potential Rehabilitation Potential Good Status of Condition at Evaluation Stable Summary Impairments Pain,ROM,Strength,Balance, Coordination,Sensation,Bed Mobility,Transfers,Gait, Activity Tolerance Progress Towards Goals Safe For Discharge Assessment Summary pt requiring SBA with mobility without AD and plans to go home today. pt's spouse will be able to assist pt at home. Goals Bed Mobility Goal Independent Transfer Goal Independent Gait Goal Independent Gait Distance 350 Other Goals up/down 2 steps without rails modified independent Days to Meet Goals 3 Frequency of Treatment Frequency Of Treatment Once a Day Treatment Plan Physical Therapy Treatment Plan Bed Mobility Training,Transfer Training,Gait Training, Therapeutic Exercise,Balance Retraining,Post Op Education, Discharge Planning,Hot or Cold Pack,Neuromuscular Re-ed, Coordination Retraining,Manual Therapy Recommendations To Nursing Amount of Assist Needed Standby Assistance Discharge Recommendations PT Discharge Recommendations Home with Assistance Transportation Needs at Discharge Private Vehicle
== END 2019-08-11 10:57 | disposition home or self-care (01) | DRG 30 ==
PROVIDERS: Admitting Provider Orthopaedic Surgery; Family Provider Physician Assistant Medical; PCP Physician Assistant Medical; Referring Provider Orthopaedic Surgery; Visit Provider Orthopaedic Surgery
PROC: 0RG20A0 Fusion of 2 or more Cervical Vertebral Joints with Interbody Fusion Device, Anterior Approach, Anterior Column, Open Approach (ICD-10-PCS; principal; 2019-08-10 11:15)
DX: G95.20 Unspecified cord compression (principal); M48.02 Spinal stenosis, cervical region; M54.12 Radiculopathy, cervical region; G99.2 Myelopathy in diseases classified elsewhere; I10 Essential (primary) hypertension; Z01.818 Encounter for other preprocedural examination
CPT/HCPCS: 72040; 76000; 87635; 97161; 97165; 97535; C1776; J0690; J1100; J1170; J1885; J2250; J2405; J2704; J3010

== ENCOUNTER → 2019-11-02 11:46 | Outpatient (CLI) | payer MEDICARE, OTHER, SELFPAY ==
[2019-08-10 14:35] VITALS: BMI 29.5
--- NOTE | 2019-11-02 11:48 | DI.MRI.S_ITS ---
PROCEDURE: MR CERVICAL SPINE WO CON INDICATIONS: Cervical myelopathy status post cervical fusion TECHNIQUE: Noncontrast sagittal T1 spin echo and T2 fast spin echo, sagittal STIR, foraminal oblique sagittal T2 fast spin echo, and axial gradient echo or T2 fast spin echo through the cervical spine. COMPARISON: [facility], CR, XR CERVICAL SPINE 2 OR 3 VIEWS, 08/25/2019, 9:46. [facility], , MR CERVICAL SPINE WO CON, 03/12/2019, 15:55. FINDINGS: Image quality: Excellent. Alignment and Curvature: There is normal bony alignment. Remote ACDF at C4 through C7. Bone Marrow: Marrow demonstrates normal overall signal. Spinal Cord: Visualized spinal cord has normal size and signal. No cerebellar tonsillar herniation. Paraspinous Soft Tissues: No paravertebral masses. Prevertebral soft tissues are normal in thickness. C2-C3: No canal stenosis. Left uncovertebral joint hypertrophy with moderate left foraminal narrowing and mild flattening deformity on the exiting left C3 nerve root. C3-C4: No significant change. Mild disc bulge. Mild central canal stenosis. Bilateral uncovertebral joint hypertrophy. Moderate right foraminal narrowing with mild flattening deformity on the exiting right C4 nerve root. Mild to moderate left foraminal narrowing. C4-C5: No significant change. Mild disc bulge. Flattening deformity on the ventral aspect of the cord. Moderate canal stenosis. Bilateral facet hypertrophy. Moderate bilateral foraminal narrowing with mild flattening deformity of the exiting bilateral C5 nerve roots. C5-C6: No significant change. Moderate canal stenosis. Bilateral uncovertebral joint hypertrophy. Moderate to severe bilateral foraminal narrowing with impingement on the exiting bilateral C6 nerve roots. C6-C7: No significant change. Disc bulge. Mild canal stenosis. Bilateral uncovertebral joint hypertrophy. Moderate to severe right foraminal narrowing and severe left foraminal narrowing with impingement on the bilateral C7 nerve roots. C7-T1: No canal stenosis or foraminal stenosis. IMPRESSION: 1. Remote ACDF C4 through C7. 2. Multilevel canal stenosis as described above. 3. Multilevel foraminal stenosis as described above. Dictated by: Charles Martinez M.D. on 11/02/2019 at 13:06 Approved by: Charles Martinez M.D. on 11/02/2019 at 13:44
== END ==
PROVIDERS: Family Provider Physician Assistant Medical; PCP Physician Assistant Medical; Referring Provider Physical Medicine & Rehabilitation; Visit Provider Physical Medicine & Rehabilitation
DX: G95.9 Disease of spinal cord, unspecified (principal); M48.02 Spinal stenosis, cervical region; Z98.1 Arthrodesis status
CPT/HCPCS: 72141